=== PATIENT | female | born 1985 ===

== ENCOUNTER 2016-07-17 10:20 | Emergency (ER) | payer OTHER ==
[2016-07-17 10:20] VITALS: BMI 39.4
[2016-07-17 14:11] VITALS: BP 132/75; PULSE 72; RESP 18; TEMP 98; O2SAT 98
--- NOTE | 2016-07-17 14:16 | RAD ---
PROCEDURE: Right Knee Radiographs. HISTORY: twisted and fell onknee COMPARISON: None. FINDINGS: BONES: Normal. No fracture. JOINTS: Normal. No osteoarthritis. JOINT EFFUSION: None. OTHER FINDINGS: None. IMPRESSION: Normal radiographs of the right knee.
--- NOTE | 2016-07-17 15:47 | C.PDOC ---
History Of Present Illness 30-year-old female, presents to the emergency department with complaints of fall. Patient was walking, when she stepped in pothole, causing her to twist and fall onto right knee. Patient states she hit her head, but did not lose consciousness. denies any neck pain. dizziness, blurry vision, vomiting. Patient denies numbness/weakness, tingling, or any other associated symptoms. No other complaints at this time. Time Seen by Provider: 07/17/16 11:00 Chief Complaint (Nursing): Lower Extremity Problem/Injury History Per: Patient History/Exam Limitations: no limitations Onset/Duration Of Symptoms: Hrs (2), Other (prior to arrival) Current Symptoms Are (Timing): Still Present Severity: Moderate Recent travel outside of the [place]: No Past Medical History Reviewed: Historical Data, Nursing Documentation, Vital Signs Vital Signs: Last Vital Signs Temp 98 F 07/17/16 13:30 Pulse 72 07/17/16 13:30 Resp 18 07/17/16 13:30 BP 132/75 07/17/16 13:30 Pulse Ox 98 07/17/16 23:02 - Medical History PMH: HTN, Hypercholesterolemia Surgical History: Appendectomy - [facility] Procedures APPLICATION OF SPLINT (04/09/14) Family History: States: No Known Family Hx - Social History Hx Tobacco Use: No Hx Alcohol Use: No Hx Substance Use: No - Immunization History Hx Tetanus Toxoid Vaccination: Yes Hx Influenza Vaccination: Yes Hx Pneumococcal Vaccination: Yes Review Of Systems Except As Marked, All Systems Reviewed And Found Negative. Constitutional: Negative for: Fever, Chills Respiratory: Negative for: Cough Gastrointestinal: Negative for: Vomiting Musculoskeletal: Positive for: Other (RIGHT KNEE PAIN). Negative for: Neck Pain , Back Pain Neurological: Negative for: Weakness, Numbness Physical Exam - Physical Exam Appears: Non-toxic, No Acute Distress Skin: Warm, Dry, No Rash Head: Atraumatic, Normacephalic Neck: Normal ROM, No Midline Cervical Tenderness Chest: Symmetrical, No Deformity, No Tenderness Cardiovascular: Rhythm Regular, No Murmur Respiratory: Normal Breath Sounds, No Accessory Muscle Use, No Rales, No Rhonchi , No Wheezing Gastrointestinal/Abdominal: Soft, No Tenderness Back: No CVA Tenderness, No Vertebral Tenderness Extremity: Tenderness (distal right patella tender, painful rom, no swelling noted. ), No Calf Tenderness, No Deformity Extremity: Right: Painful To Bear Weight Pulses: Left Dorsalis Pedis: Normal, Right Dorsalis Pedis: Normal Neurological/Psych: Oriented x3, Normal Speech, Normal Cognition, Normal Cranial Nerves, Normal Motor, Normal Sensation ED Course And Treatment - Laboratory Results Urine POC: Negative O2 Sat by Pulse Oximetry: 98 - Other Rad Right knee x-ray X-Ray: Viewed By Me, Read By Radiologist Interpretation: IMPRESSION: Normal radiographs of the right knee. Disposition - Disposition Disposition: HOME/ ROUTINE Disposition Time: 01:30 Condition: GOOD Forms: General Discharge Instructions - Clinical Impression Clinical Impression: Knee sprain - Scribe Statement The provider has reviewed the documentation as recorded by the Monica Gavin All medical record entries made by the Butchibvamsi were at my direction and personally dictated by me. I have reviewed the chart and agree that the record accurately reflects my personal performance of the history, physical exam, medical decision making, and the department course for this patient. I have also personally directed, reviewed, and agree with the discharge instructions and disposition.
== END 2016-07-17 13:35 | disposition home or self-care (01) ==
LOC: C.ER 10:20
DX: S83.91XA Sprain of unspecified site of right knee, initial encounter (principal); W18.30XA Fall on same level, unspecified, initial encounter; Y93.01 Activity, walking, marching and hiking

== ENCOUNTER 2017-04-12 00:08 | Emergency (ER) | payer OTHER ==
[2017-04-12 00:08] VITALS: BMI 39.4
[2017-04-12 00:26] VITALS: RESP 20
--- NOTE | 2017-04-12 02:01 | C.PDOC ---
History Of Present Illness 31 year old female presents to the ER with a complaint of back pain. Patient states she was coming out of her fiance's house, was carrying groceries, slipped down the stairs, and landed on her back. Denies weakness or numbness. Time Seen by Provider: 04/12/17 00:21 Chief Complaint (Nursing): Back Pain History Per: Patient History/Exam Limitations: no limitations Onset/Duration Of Symptoms: Hrs Current Symptoms Are (Timing): Still Present Quality Of Discomfort: Unable To Describe Previous Symptoms: None Associated Symptoms: None. denies: Incontinence, New Weakness, New Numbness Exacerbating Factor(s): Turning, Movement Recent travel outside of the [place]: No Past Medical History Reviewed: Historical Data, Nursing Documentation, Vital Signs Vital Signs: Last Vital Signs Temp 98 F 04/12/17 02:18 Pulse 92 H 04/12/17 02:18 Resp 20 04/12/17 02:18 BP 112/77 04/12/17 02:18 Pulse Ox 98 04/13/17 04:16 - Medical History PMH: HTN, Hypercholesterolemia Surgical History: Appendectomy - [facility] Procedures APPLICATION OF SPLINT (04/09/14) Family History: States: Unknown Family Hx - Social History Hx Tobacco Use: No Hx Alcohol Use: No Hx Substance Use: No - Immunization History Hx Tetanus Toxoid Vaccination: Yes Hx Influenza Vaccination: Yes Hx Pneumococcal Vaccination: Yes Review Of Systems Musculoskeletal: Positive for: Back Pain Neurological: Negative for: Weakness, Numbness Physical Exam - Physical Exam Appears: Non-toxic, No Acute Distress Skin: Normal Color, Warm, Dry, No Rash Head: Atraumatic, Normacephalic Eye(s): bilateral: Normal Inspection, PERRL, EOMI Ear(s): Bilateral: Normal Oral Mucosa: Moist Neck: Normal ROM, No Midline Cervical Tenderness, No Paracervical Tenderness, Supple Chest: Symmetrical, No Tenderness Cardiovascular: Rhythm Regular, No Friction Rub, No Murmur Respiratory: Normal Breath Sounds, No Rales, No Rhonchi, No Wheezing Gastrointestinal/Abdominal: Normal Exam, Soft, No Tenderness Back: Normal Inspection, No CVA Tenderness Extremity: Normal ROM (x4), Capillary Refill (< 2 sec), No Swelling Pulses: Left Radial: Normal, Right Radial: Normal, Left Dorsalis Pedis: Normal, Right Dorsalis Pedis: Normal Neurological/Psych: Oriented x3, Normal Speech, Normal Motor Gait: Steady ED Course And Treatment O2 Sat by Pulse Oximetry: 98 (Room air) Pulse Ox Interpretation: Normal - Other Rad L/S spine x-ray X-Ray: Interpreted by Me, Viewed By Me Interpretation: No acute fractures or dislocations Progress Note: L/S spine x-ray ordered results were negative. Toradol and flexeril administered. On reevaluation, patient is ambulatory in the ER with no pain or difficulty. Will discharge home with instructions to follow up with PMD or return if symptoms worsen. Medical Decision Making Medical Decision Making: On re-exam, the patient reports improvement of symptoms. Lungs are CTA, heart is RRR, abdomen is soft, non-tender and the patient is tolerating PO well. Ambulatory in the ED with steady gait. Follow up with the medical doctor within 1-2 days. Return if worsened. Disposition - Disposition Referrals: Quinn Galan MD [Non-Staff] - Disposition: HOME/ ROUTINE Disposition Time: 01:59 Condition: GOOD Additional Instructions: Follow up with the medical doctor within 1-2 days without fail. Return if worsened. Prescriptions: Cyclobenzaprine [Cyclobenzaprine HCl] 10 mg PO BID #14 tab Naproxen [Naprosyn] 500 mg PO BID #20 tab Instructions: Low Back Pain in Adults Forms: [facility] (Kinyarwanda), Work Excuse - Clinical Impression Clinical Impression: Contusion of back - PA / SAFETY REPRESENTATIVE / Resident Statement MD/DO has reviewed & agrees with the documentation as recorded. - Scribe Statement The provider has reviewed the documentation as recorded by the Scribe Osito Wallace All medical record entries made by the Scribe were at my direction and personally dictated by me. I have reviewed the chart and agree that the record accurately reflects my personal performance of the history, physical exam, medical decision making, and the department course for this patient. I have also personally directed, reviewed, and agree with the discharge instructions and disposition.
[2017-04-12 02:21] VITALS: BP 112/77; PULSE 92; TEMP 98
[2017-04-12 02:50] VITALS: O2SAT 98
--- NOTE | 2017-04-12 09:05 | RAD ---
PROCEDURE: Radiographs of the Lumbar Spine. HISTORY: low back injury, fall COMPARISON: No prior. FINDINGS: BONES: Normal alignment. No listhesis. No fracture. DISC SPACES: Mild endplate degenerative changes associated with osteophyte lipping at L3 and L4. Possible mild intervertebral disc space narrowing at L5-S1. OTHER FINDINGS: None. IMPRESSION: No evidence of acute fracture or subluxation. Mild degenerative changes and small anterior osteophyte lipping at L3-L4 and mild narrowing of the intervertebral disc space at L5-S1
== END 2017-04-12 02:18 | disposition home or self-care (01) ==
LOC: C.ER 00:08
DX: S30.0XXA Contusion of lower back and pelvis, initial encounter (principal); W10.9XXA Fall (on) (from) unspecified stairs and steps, initial encounter
CPT/HCPCS: 72100; 96372; 99283; J1885

== ENCOUNTER 2017-07-01 11:07 | Inpatient (IN) | payer OTHER ==
[2017-07-01 11:07] VITALS: BMI 39.4
--- NOTE | 2017-07-01 11:53 | C.PDOC ---
History Of Present Illness 31-YEAR-OLD FEMALE, PRESENTS TO THE EMERGENCY DEPARTMENT WITH COMPLAINTS OF NAUSEA AND NON-BLOODY DIARRHEA X 3 DAYS. NEW ONSET RUQ PAIN. CO PERSIST "HARDNESS" LUQ X SEV MONTHS, WORSE AFTER EATING "I FEEL STUFFED AFTER EATING EVEN THOUGH I DON'T EAT MUCH". NO WT LOSS, FEVER. NO PRIOR EVAL FOR SAME. PSH APPY. LMP 06/10 EXAM MILD DIST NONTOXIC ABD OBESE +RUQ TEND SOFT NO FOCAL MASS NO R/G GOOD TURGOR REMAINDER NEG Time Seen by Provider: 07/01/17 11:24 Chief Complaint (Nursing): Abdominal Pain History Per: Patient History/Exam Limitations: no limitations Current Symptoms Are (Timing): Still Present Severity: Moderate Past Medical History Reviewed: Historical Data, Nursing Documentation, Vital Signs Vital Signs: Last Vital Signs Temp 97.9 F 07/01/17 11:14 Pulse 90 07/01/17 13:54 Resp 18 07/01/17 13:54 BP 143/94 H 07/01/17 13:54 Pulse Ox 98 07/01/17 13:41 - Medical History PMH: HTN, Hypercholesterolemia Surgical History: Appendectomy - [facility] Procedures APPLICATION OF SPLINT (04/09/14) Family History: States: No Known Family Hx - Social History Hx Tobacco Use: No Hx Alcohol Use: No Hx Substance Use: No - Immunization History Hx Tetanus Toxoid Vaccination: Yes Hx Influenza Vaccination: Yes Hx Pneumococcal Vaccination: Yes Review Of Systems Constitutional: Negative for: Fever, Weight loss Cardiovascular: Negative for: Chest Pain, Palpitations Respiratory: Negative for: Shortness of Breath Gastrointestinal: Positive for: Nausea, Abdominal Pain, Diarrhea Musculoskeletal: Negative for: Back Pain Neurological: Negative for: Weakness, Numbness, Headache, Dizziness Physical Exam - Physical Exam Appears: Non-toxic, No Acute Distress (MILD DIST) Skin: Normal Color, Warm, Dry, No Diaphoretic, No Rash, Other (GOOD TURGOR) Head: Atraumatic, Normacephalic Eye(s): bilateral: PERRL Nose: Normal Oral Mucosa: Moist Lips: Normal Appearing Neck: Normal ROM Chest: Symmetrical Cardiovascular: Rhythm Regular, No Murmur Respiratory: Normal Breath Sounds, No Accessory Muscle Use Gastrointestinal/Abdominal: Soft, Tenderness (OBESE +RUQ TEND), No Guarding, No Rebound Extremity: Normal ROM, No Deformity, No Swelling Neurological/Psych: Oriented x3, Normal Speech ED Course And Treatment - Laboratory Results Result Diagrams: 07/01/17 11:59 07/01/17 11:59 O2 Sat by Pulse Oximetry: 98 (RA) Pulse Ox Interpretation: Normal Progress - Re-Evaluation Re-evaluation Note: 07/01/17 12:38 PS NO PRIOR HO DM. APPEARS COMFORTABLE NAD. CT PENDING 07/01/17 13:31 D/W ICU FOR EVAL. CT/US PENDING 07/01/17 13:40 D/W DR Cleo ZACARIAS C/F PMD WILL ADMIT 07/01/17 14:57 cleared for floor per ICU - Data Reviewed Data Reviewed: Lab, Diagnostic imaging, Old records Disposition Counseled Patient/Family Regarding: Studies Performed, Diagnosis - Disposition Disposition: HOSPITALIZED Disposition Time: 13:41 Condition: STABLE Forms: [facility] (Vietnamese) - POA Present On Arrival: Poor Glycemic Control - Clinical Impression Clinical Impression: Diabetes mellitus, new onset, Abdominal pain - Scribe Statement The provider has reviewed the documentation as recorded by the Scribe (Calvin Gavin) All medical record entries made by the Scribe were at my direction and personally dictated by me. I have reviewed the chart and agree that the record accurately reflects my personal performance of the history, physical exam, medical decision making, and the department course for this patient. I have also personally directed, reviewed, and agree with the discharge instructions and disposition. Decision To Admit - Pt Status Changed To: Hospital Disposition Of: Observation - . Bed Request Type: Regular Admitting Physician: Bennie Zacarias Patient Diagnosis: Diabetes mellitus, new onset, Abdominal pain
[2017-07-01] MEDS ORDERED: Sodium Chloride 0.9% 1,000 ML IV ONE (11:54)
[2017-07-01 12:04] LABS: BASO # 0.1 K/uL (0.0-0.2); BASO % 1.2 % (0.0-2.0); EOS # 0.2 K/uL (0.0-0.7); EOS % 2.3 % (0.0-4.0); HEMOGLOBIN 13.4 g/dL (11.0-16.0); LYMPH # 2.1 K/uL (1.0-4.3); LYMPH % 30.3 % (20.0-40.0); MEAN CELL VOLUME 81.2 fL (81.0-99.0); MEAN CORPUSCULAR HGB CONC 33.3 g/dL (33.0-37.0); MEAN PLATELET VOLUME 9.6 fL (7.2-11.7); MONO # 0.4 K/uL (0.0-0.8); NEUT # 4.2 K/uL (1.8-7.0); NEUT % 60.2 % (50.0-75.0); NRBC % 0.1 % (0.0-2.0); RBC 4.96 Mil/uL (3.80-5.20); RED CELL DISTRIBUTION WIDTH 15.4 % (11.5-14.5)
[2017-07-01] MEDS ORDERED: Sodium Chloride 0.9% 1,000 ML ONE (12:04)
[2017-07-01] MEDS ORDERED: Morphine 4 MG/ML VIAL ONE (12:09)
[2017-07-01 12:11] LABS: SQUAMOUS EPITHIAL 5 /hpf (0-5); URINE BILIRUBIN NEGATIVE (NEGATIVE); URINE BLOOD 1+ (NEGATIVE); URINE CLARITY Hazy (Clear); URINE COLOR Yellow (YELLOW); URINE GLUCOSE (UA) 3+ mg/dL (Normal); URINE PROTEIN 1+ mg/dL (NEGATIVE); URINE UROBILINOGEN NORMAL mg/dL (0.2-1.0)
[2017-07-01 12:14] LABS: URINE LEUKOCYTE ESTERASE 1+ Leu/uL (Negative)
[2017-07-01 12:15] LABS: ALB/GLOB RATIO 1.1 (1.0-2.1); ALBUMIN 4.4 g/dL (3.5-5.0); ALT/SGPT 55 U/L (9-52); AST/SGOT 78 U/L (14-36); BLOOD UREA NITROGEN 9 mg/dL (7-17); CALCIUM 9.3 mg/dl (8.6-10.4); GFR AFRICAN-AMERICAN > 60; GFR NON-AFRICAN AMERICAN > 60; LIPASE 76 U/L (23-300)
[2017-07-01] MEDS ORDERED: Iodixanol 320 MG/ML 100 ML BOTTLE IV ONE (12:44)
[2017-07-01 13:13] LABS: VENOUS BLOOD GAS BASE EXCESS -0.8 mmol/L (0.0-2.0); VENOUS BLOOD GAS PCO2 41 mmHg (40-60); VENOUS BLOOD GAS PO2 48 mm/Hg (30-55); VENOUS BLOOD PH 7.38 (7.32-7.43)
--- NOTE | 2017-07-01 13:35 | US ---
HISTORY: abd pain COMPARISON: Correlations made to CT scan of the abdomen and pelvis dated 02/17/2015. TECHNIQUE: Sonographic evaluation of the right upper quadrant of the abdomen. FINDINGS: LIVER: Enlarged, measuring 24.9 cm in length. Increased echogenicity of the liver parenchyma. No mass. No intrahepatic bile duct dilatation. GALLBLADDER: Unremarkable. No gallstones. COMMON BILE DUCT: Measures 3 mm. No stones. No dilatation. PANCREAS: Not well-visualized RIGHT KIDNEY: Measures 13.8 x 4.9 x 4.6 cm in length. Normal echogenicity. No calculus, mass, or hydronephrosis. AORTA: No aneurysmal dilatation. IVC: Unremarkable. OTHER FINDINGS: None . IMPRESSION: Hepatomegaly with steatosis
[2017-07-01] MEDS ORDERED: (Novolin R) Insulin Human Regular 100 units/ml vial IV STA (13:39)
[2017-07-01] MEDS ORDERED: (Novolin R) Insulin Human Regular 100 units/ml vial ONE ×2 (13:53→18:37)
--- NOTE | 2017-07-01 13:57 | CT ---
PROCEDURE: CT Abdomen and Pelvis with contrast HISTORY: abd pain DIARRHEA COMPARISON: None. TECHNIQUE: Contrast dose: 100 mL Visipaque 320 Radiation dose: Total exam DLP = 1194.6 mGy-cm. This CT exam was performed using one or more of the following dose reduction techniques: Automated exposure control, adjustment of the mA and/or kV according to patient size, and/or use of iterative reconstruction technique. FINDINGS: LOWER THORAX: Unremarkable. LIVER: Diffuse hepatic steatosis. No gross lesion or ductal dilatation. GALLBLADDER AND BILE DUCTS: Unremarkable. PANCREAS: Unremarkable. No gross lesion or ductal dilatation. SPLEEN: Unremarkable. ADRENALS: Unremarkable. No mass. KIDNEYS AND URETERS: Punctate nonobstructive left renal calculus. No hydronephrosis. No solid mass. VASCULATURE: Unremarkable. No aortic aneurysm. BOWEL: Unremarkable. No obstruction. No gross mural thickening. APPENDIX: Appendicolith within the appendiceal stump tip without dilatation, wall thickening or periappendiceal inflammatory change. PERITONEUM: Surgical clips in the right mid abdomen. No free fluid. No free air. LYMPH NODES: Unremarkable. No enlarged lymph nodes. BLADDER: Unremarkable. REPRODUCTIVE: Unremarkable. BONES: No acute fracture. OTHER FINDINGS: None. IMPRESSION: No acute abdominal pelvic pathology. Diffuse hepatic steatosis. Punctate nonobstructive left renal calculus.
[2017-07-01] MEDS: Sodium Chloride 0.9% 1,000 ML IV SCH (18:16)
[2017-07-01] MEDS: (Novolog) Insulin Aspart, Recombinant 100 u/ml 10 ml vial SC SCH (18:37)
[2017-07-01 22:46] VITALS: RESP 20
[2017-07-02] MEDS: Sodium Chloride 0.9% 1,000 ML IV SCH ×4 (03:45→23:00)
[2017-07-02] MEDS: (Novolog) Insulin Aspart, Recombinant 100 u/ml 10 ml vial SC SCH ×4 (08:00→22:15)
[2017-07-02] MEDS: Pantoprazole 40 mg EC Tab PO SCH (09:39)
[2017-07-02] MEDS: Enoxaparin 30 mg Syringe SC SCH (09:39)
[2017-07-02] MEDS ORDERED: Pneumococcal 23-Valent Vaccine IM ONE (10:00)
--- NOTE | 2017-07-02 14:37 | CP.PCM.HP ---
Past Patient History - Infectious Disease Hx of Infectious Diseases: None - Past Social History Smoking Status: Former Smoker - CARDIAC Hx Hypercholesterolemia: Yes Hx Hypertension: Yes - PSYCHIATRIC Hx Substance Use: No - SURGICAL HISTORY Hx Appendectomy: Yes - ANESTHESIA Hx Anesthesia: Yes Hx Anesthesia Reactions: No Meds Allergies/Adverse Reactions: Allergies Allergy/AdvReac Type Severity Reaction Status Date / Time loperamide HCl Allergy RASH Verified 07/01/17 11:17 [From Imodium A-D] Physical Exam - Constitutional Appears: Well - Head Exam Head Exam: ATRAUMATIC, NORMAL INSPECTION, NORMOCEPHALIC - Eye Exam Eye Exam: EOMI, Normal appearance, PERRL Pupil Exam: NORMAL ACCOMODATION, PERRL - ENT Exam ENT Exam: Mucous Membranes Moist, Normal Exam - Neck Exam Neck exam: Positive for: Normal Inspection - Respiratory Exam Respiratory Exam: Decreased Breath Sounds - Cardiovascular Exam Cardiovascular Exam: REGULAR RHYTHM, +S1, +S2 - GI/Abdominal Exam GI & Abdominal Exam: Diminished Bowel Sounds, Soft - Rectal Exam Rectal Exam: Deferred Results - Vital Signs Recent Vital Signs: Last Vital Signs Temp 97.7 F 07/02/17 08:13 Pulse 76 07/02/17 08:13 Resp 20 07/02/17 08:13 BP 145/81 07/02/17 08:13 Pulse Ox 97 07/02/17 08:13 - Labs Result Diagrams: 07/01/17 11:59 07/01/17 11:59 Labs: Laboratory Results - last 24 hr 07/01/17 07/01/17 07/02/17 15:47 18:09 07:13 POC Glucose (mg/dL) 205 H 159 H 189 H Hemoglobin A1c 07/02/17 07/02/17 11:06 11:41 POC Glucose (mg/dL) 196 H Hemoglobin A1c 10.2 H
[2017-07-03] MEDS: Sodium Chloride 0.9% 1,000 ML IV SCH ×2 (07:00→09:41)
[2017-07-03 08:28] VITALS: BP 125/80; PULSE 80; TEMP 97.6; O2SAT 98
[2017-07-03] MEDS: (Novolog) Insulin Aspart, Recombinant 100 u/ml 10 ml vial SC SCH ×2 (08:34→12:27)
[2017-07-03] MEDS: Enoxaparin 30 mg Syringe SC SCH (09:40)
[2017-07-03] MEDS: Pantoprazole 40 mg EC Tab PO SCH (09:41)
--- NOTE | 2017-07-03 13:55 | CP.PCM.PN ---
Subjective - Date & Time of Evaluation Date of Evaluation: 07/03/17 Time of Evaluation: 10:40 - Subjective Subjective: clinically same Objective - Vital Signs/Intake and Output Vital Signs (last 24 hours): Temp Pulse Resp BP Pulse Ox 97.6 F 80 20 125/80 98 07/03/17 08:00 07/03/17 08:00 07/03/17 08:00 07/03/17 08:00 07/03/17 08:00 Intake and Output: 07/03/17 07/03/17 06:59 18:59 Intake Total 2150 Balance 2150 - Medications Medications: Current Medications Enoxaparin Sodium (Lovenox) 30 mg SC DAILY [facility] Last Admin: 07/03/17 09:40 Dose: 30 mg Sodium Chloride (Sodium Chloride 0.9%) 1,000 mls @ 100 mls/hr IV .Q10H [facility] Last Admin: 07/03/17 09:41 Dose: Not Given Insulin Aspart (Novolog) 0 unit SC ACHS [facility] PRN Reason: Protocol Last Admin: 07/03/17 12:27 Dose: 1 unit Metformin HCl (Glucophage) 500 mg PO BID [facility] Last Admin: 07/03/17 09:41 Dose: 500 mg Pantoprazole Sodium (Protonix Ec Tab) 40 mg PO DAILY [facility] Last Admin: 07/03/17 09:41 Dose: 40 mg - Labs Labs: 07/01/17 11:59 07/01/17 11:59 - Constitutional Appears: Well - Head Exam Head Exam: ATRAUMATIC, NORMAL INSPECTION, NORMOCEPHALIC - Eye Exam Eye Exam: EOMI, Normal appearance, PERRL Pupil Exam: NORMAL ACCOMODATION, PERRL - ENT Exam ENT Exam: Mucous Membranes Moist, Normal Exam - Neck Exam Neck Exam: Full ROM, Normal Inspection. absent: Lymphadenopathy - Respiratory Exam Respiratory Exam: Decreased Breath Sounds - Cardiovascular Exam Cardiovascular Exam: REGULAR RHYTHM, +S1, +S2 - GI/Abdominal Exam GI & Abdominal Exam: Soft, Diminished Bowel Sounds - Rectal Exam Rectal Exam: Deferred
--- NOTE | 2017-07-03 15:20 | CP.PCM.PN ---
Subjective - Date & Time of Evaluation Date of Evaluation: 07/03/17 Time of Evaluation: 15:18 - Subjective Subjective: PT SEEN AND CLEARED FOR D/C BY DR. ZACARIAS. TO GO HOME WITH RX FOR METFORMIN BID. PT TO F/U WITH Sergei ZACARIAS IN THE OFFICE IN 1 WEEK. CAN BE REFERRED TO [facility]TURE BUILDER APPRENTICE OR DM EDUCATOR OP FOR FURTHER EDUCATION AND MANAGEMENT. NO FURTHER ORDERS. Objective - Vital Signs/Intake and Output Vital Signs (last 24 hours): Temp Pulse Resp BP Pulse Ox 97.6 F 80 20 125/80 98 07/03/17 08:00 07/03/17 08:00 07/03/17 08:00 07/03/17 08:00 07/03/17 08:00 Intake and Output: 07/03/17 07/03/17 06:59 18:59 Intake Total 2150 Output Total 800 Balance 2150 -800 - Medications Medications: Current Medications Enoxaparin Sodium (Lovenox) 30 mg SC DAILY [facility] Last Admin: 07/03/17 09:40 Dose: 30 mg Sodium Chloride (Sodium Chloride 0.9%) 1,000 mls @ 100 mls/hr IV .Q10H [facility] Last Admin: 07/03/17 09:41 Dose: Not Given Insulin Aspart (Novolog) 0 unit SC ACHS [facility] PRN Reason: Protocol Last Admin: 07/03/17 12:27 Dose: 1 unit Metformin HCl (Glucophage) 500 mg PO BID [facility] Last Admin: 07/03/17 09:41 Dose: 500 mg Pantoprazole Sodium (Protonix Ec Tab) 40 mg PO DAILY [facility] Last Admin: 07/03/17 09:41 Dose: 40 mg - Labs Labs: 07/01/17 11:59 07/01/17 11:59
== END 2017-07-03 16:36 | disposition home or self-care (01) | DRG 814 ==
LOC: C.ER 11:07 → C.9E 14:58 → C.3T 21:30 → OBSVTOIN 07-03 11:42
PROVIDERS: ADMIT Internal Medicine Nephrology; ATTEND Internal Medicine Nephrology
DX: R10.9 Unspecified abdominal pain (principal); E11.9 Type 2 diabetes mellitus without complications; E78.00 Pure hypercholesterolemia, unspecified; I10 Essential (primary) hypertension; Z87.891 Personal history of nicotine dependence

== ENCOUNTER 2018-02-12 21:36 | Emergency (ER) | payer OTHER ==
[2018-02-12 21:37] VITALS: BMI 39.4
[2018-02-12 21:53] VITALS: O2SAT 99
[2018-02-12] MEDS ORDERED: Sodium Chloride 0.9% 1,000 ML IV ONE (22:15)
[2018-02-12] MEDS ORDERED: Sodium Chloride 0.9% 1,000 ML ONE (22:36)
[2018-02-12 22:39] LABS: BASO # 0.1 K/uL (0.0-0.2); BASO % 0.9 % (0.0-2.0); EOS # 0.2 K/uL (0.0-0.7); EOS % 2.4 % (0.0-4.0); HEMOGLOBIN 12.8 g/dL (11.0-16.0); LYMPH # 2.1 K/uL (1.0-4.3); MEAN CORPUSCULAR HEMOGLOBIN 27.5 pg (27.0-31.0); MEAN PLATELET VOLUME 8.7 fL (7.2-11.7); MONO # 0.6 K/uL (0.0-0.8); NEUT # 3.6 K/uL (1.8-7.0); NEUT % 55.7 % (50.0-75.0); RBC 4.65 Mil/uL (3.80-5.20); RED CELL DISTRIBUTION WIDTH 15.4 % (11.5-14.5); WHITE BLOOD COUNT 6.4 K/uL (4.8-10.8)
[2018-02-12 22:43] LABS: HCG,QUALITATIVE URINE NEGATIVE (NEGATIVE); MEAN CELL VOLUME 83.4 fL (81.0-99.0)
[2018-02-12 22:51] LABS: SQUAMOUS EPITHIAL 6 /hpf (0-5); URINE BACTERIA OCC (<OCC); URINE BILIRUBIN NEGATIVE (NEGATIVE); URINE CLARITY Hazy (Clear); URINE COLOR Amber (YELLOW); URINE GLUCOSE (UA) NORMAL (Normal); URINE LEUKOCYTE ESTERASE NEG Leu/uL (Negative); URINE PROTEIN 2+ mg/dL (NEGATIVE)
[2018-02-12 22:52] LABS: URINE BLOOD TRACE (NEGATIVE)
--- NOTE | 2018-02-12 22:53 | C.PDOC ---
History Of Present Illness 32 y/o female presents to the ER c/o abdominal burning pain x1 day, associated with nausea, diarrhea and frontal headache today. Pt reports her was sick with similar sx yesterday after eating from a pizza place (they both did). Pt denies vomiting, dysuria, hematuria, fever/chills. Time Seen by Provider: 02/12/18 21:41 Chief Complaint (Nursing): Abdominal Pain History Per: Patient History/Exam Limitations: no limitations Onset/Duration Of Symptoms: Days (x1) Current Symptoms Are (Timing): Still Present Context: Food Severity: Moderate Location Of Pain/Discomfort: Epigastric Quality Of Discomfort: Burning, "Pain" Associated Symptoms: Nausea, Diarrhea. denies: Fever, Chills, Vomiting Past Medical History Reviewed: Historical Data, Nursing Documentation, Vital Signs Vital Signs: Last Vital Signs Temp 97.8 F 02/12/18 21:39 Pulse 91 H 02/12/18 21:39 Resp 22 02/12/18 21:39 BP 124/85 02/12/18 21:39 Pulse Ox 99 02/12/18 21:39 - Medical History PMH: HTN, Hypercholesterolemia Surgical History: Appendectomy - [facility] Procedures APPLICATION OF SPLINT (04/09/14) Family History: States: No Known Family Hx - Social History Hx Tobacco Use: No Hx Alcohol Use: No Hx Substance Use: No - Immunization History Hx Tetanus Toxoid Vaccination: Yes Hx Influenza Vaccination: Yes Hx Pneumococcal Vaccination: Yes Review Of Systems Constitutional: Negative for: Fever, Chills Gastrointestinal: Positive for: Nausea, Abdominal Pain, Diarrhea. Negative for: Vomiting Genitourinary: Negative for: Dysuria, Hematuria Skin: Negative for: Rash Neurological: Positive for: Headache (frontal) Physical Exam - Physical Exam Appears: Well, Non-toxic, No Acute Distress Skin: Warm, Dry Eye(s): bilateral: Normal Inspection Oral Mucosa: Moist Cardiovascular: Rhythm Regular Respiratory: Normal Breath Sounds, No Rales, No Rhonchi, No Wheezing Gastrointestinal/Abdominal: Normal Exam, Bowel Sounds, Soft, No Tenderness Back: Normal Inspection, No CVA Tenderness Neurological/Psych: Oriented x3 ED Course And Treatment - Laboratory Results Result Diagrams: 02/12/18 22:27 02/12/18 22:27 O2 Sat by Pulse Oximetry: 99 (RA) Pulse Ox Interpretation: Normal Progress Note: Blood work, UA ordered and reviewed. Patient given IV NS bolus, IV Protonix, PO tylenol. Reevaluation Time: 23:20 Reassessment Condition: Improved (Patient reassessed, is resting comfortably and states she feels better. On exam, abdomen is soft and nontender. Patient given Rxs for pepcid and bentyl, and she was instructed to drink plenty of clear fluids and to follow up with PMD in 1-2 days. She understands she should return to ED if symptoms worsen.) Disposition Counseled Patient/Family Regarding: Studies Performed, Diagnosis, Need For Followup, Rx Given - Disposition Referrals: Estevan Sandhu MD [Medical Doctor] - Disposition: HOME/ ROUTINE Disposition Time: 23:20 Condition: STABLE Additional Instructions: FOLLOW UP WITH YOUR DOCTOR IN 1-2 DAYS DRINK PLENTY OF CLEAR FLUIDS RETURN TO ER IF SYMPTOMS WORSEN USE MEDICATIONS NEEDED Prescriptions: Dicyclomine [Bentyl] 20 mg PO Q6 PRN #12 tab PRN Reason: ABDOMINAL CRAMPING Famotidine [Pepcid] 20 mg PO BID PRN #15 tab PRN Reason: abdominal Instructions: Diarrhea and Traveler's Diarrhea, Adult (DC) Forms: [facility] (Divehi) Print Language: GERMAN - Clinical Impression Clinical Impression: Nausea, Diarrhea, Epigastric burning sensation - Scribe Statement The provider has reviewed the documentation as recorded by the Scribvamsi Fermin Do Provider Attestation: All medical record entries made by the Scribe were at my direction and personally dictated by me. I have reviewed the chart and agree that the record accurately reflects my personal performance of the history, physical exam, medical decision making, and the department course for this patient. I have also personally directed, reviewed, and agree with the discharge instructions and disposition.
[2018-02-12 22:54] LABS: ALB/GLOB RATIO 1.2 (1.0-2.1); ALBUMIN 4.5 g/dL (3.5-5.0); ALT/SGPT 43 U/L (9-52); AST/SGOT 50 U/L (14-36); BLOOD UREA NITROGEN 10 mg/dL (7-17); CALCIUM 8.3 mg/dl (8.6-10.4); GFR NON-AFRICAN AMERICAN > 60; LIPASE 77 U/L (23-300)
[2018-02-12 23:33] VITALS: BP 132/76; PULSE 85; RESP 15; TEMP 98.5
== END 2018-02-12 23:33 | disposition home or self-care (01) ==
LOC: C.ER 21:36
DX: R10.13 Epigastric pain (principal); R11.0 Nausea; R19.7 Diarrhea, unspecified
CPT/HCPCS: 80053; 81001; 83690; 84703; 85025; 96361; 96374; 99285; C9113; J7030

== ENCOUNTER 2018-03-17 18:30 | Emergency (ER) | payer OTHER ==
[2018-03-17 18:31] VITALS: BMI 39.4
[2018-03-17] MEDS ORDERED: Sodium Chloride 0.9% 1,000 ML IV ONE (19:44)
--- NOTE | 2018-03-17 19:44 | C.PDOC ---
History Of Present Illness The patient presents to the ED for evaluation of right upper quadrant abdominal pain, nausea, diarrhea and slight lightheadedness which began today. Patient reports decreased PO intake. She denies fever, chills, vomiting. Time Seen by Provider: 03/17/18 19:44 Chief Complaint (Nursing): Abdominal Pain History Per: Patient History/Exam Limitations: no limitations Onset/Duration Of Symptoms: Hrs Current Symptoms Are (Timing): Still Present Location Of Pain/Discomfort: RUQ Radiation Of Pain To:: None Quality Of Discomfort: "Pain" Associated Symptoms: Nausea, Diarrhea. denies: Fever, Chills, Vomiting Exacerbating Factors: None Alleviating Factors: None Last Bowel Movement: Today Recent travel outside of the [place]: No Additional History Per: Patient Abnormal Vaginal Bleeding: No Past Medical History Reviewed: Historical Data, Nursing Documentation, Vital Signs Vital Signs: Last Vital Signs Temp 98.3 F 03/17/18 18:51 Pulse 100 H 03/17/18 18:51 Resp 18 03/17/18 18:51 BP 147/100 H 03/17/18 18:51 Pulse Ox 97 03/17/18 18:51 - Medical History PMH: HTN, Hypercholesterolemia Denies: Chronic Kidney Disease Surgical History: Appendectomy - [facility] Procedures APPLICATION OF SPLINT (04/09/14) Family History: States: Unknown Family Hx - Social History Hx Tobacco Use: No Hx Alcohol Use: No Hx Substance Use: No - Immunization History Hx Tetanus Toxoid Vaccination: Yes Hx Influenza Vaccination: Yes Hx Pneumococcal Vaccination: Yes Review Of Systems Constitutional: Negative for: Fever, Chills Cardiovascular: Negative for: Chest Pain, Palpitations Respiratory: Negative for: Cough, Shortness of Breath Gastrointestinal: Positive for: Nausea, Abdominal Pain (right upper quadrant ), Diarrhea. Negative for: Vomiting Genitourinary: Negative for: Dysuria, Frequency, Hematuria Musculoskeletal: Negative for: Neck Pain, Shoulder Pain, Back Pain Skin: Negative for: Rash, Lesions, Jaundice, Bruising Neurological: Positive for: Other (lightheadedness). Negative for: Weakness, Numbness, Headache Physical Exam - Physical Exam Appears: Non-toxic, No Acute Distress Skin: Warm, Dry Head: Normacephalic Eye(s): bilateral: Normal Inspection Oral Mucosa: Moist Neck: Supple Chest: Symmetrical, No Deformity, No Tenderness Cardiovascular: Rhythm Regular, No Murmur Respiratory: No Rales, No Rhonchi, No Wheezing Gastrointestinal/Abdominal: Soft, Tenderness (right upper quadrant ), Distention, No Guarding, No Rebound, Other (tympanic to percussion ) Extremity: Normal ROM, Capillary Refill (less than 2 seconds ) Neurological/Psych: Oriented x3 ED Course And Treatment - Laboratory Results Result Diagrams: 03/17/18 20:26 03/17/18 20:26 O2 Sat by Pulse Oximetry: 97 (on RA) Pulse Ox Interpretation: Normal Progress Note: Bloodwork and urinalysis ordered and reviewed. Pepcid IVP, Zofran IVP and IV Fluids given. Medical Decision Making Medical Decision Making: Upon provider reevaluation patient is feeling better, is medically stable, and requires no further treatment in the ED at this time. Patient will be discharged home with Rx for zofran . Counseling was provided and all questions were answered regarding diagnosis and need for follow up withdr knox. There is agreement to discharge plan. Return if symptoms persist or worsen. Disposition Counseled Patient/Family Regarding: Studies Performed, Diagnosis, Need For Followup, Rx Given - Disposition Referrals: Shaik Whalen MD [Staff Provider] - Disposition: HOME/ ROUTINE Disposition Time: 19:44 Condition: FAIR Additional Instructions: return if symptoms recur Prescriptions: Ondansetron ODT [Zofran ODT] 1 odt PO BID PRN #6 odt PRN Reason: Nausea/Vomiting Instructions: Acute Abdomen (Belly Pain), Adult (DC), Nausea and Vomiting, Adult (DC) Forms: [facility] ([place]) - Clinical Impression Clinical Impression: Abdominal pain, Nausea & vomiting, Diarrhea - Scribe Statement The provider has reviewed the documentation as recorded by the Scribe (Kassy Whittington) Provider Attestation: All medical record entries made by the Scribe were at my direction and personally dictated by me. I have reviewed the chart and agree that the record accurately reflects my personal performance of the history, physical exam, medical decision making, and the department course for this patient. I have also personally directed, reviewed, and agree with the discharge instructions and disposition.
[2018-03-17 20:36] LABS: BASO % 0.4 % (0.0-2.0); EOS # 0.2 K/uL (0.0-0.7); EOS % 1.8 % (0.0-4.0); HEMOGLOBIN 12.8 g/dL (11.0-16.0); LYMPH % 31.1 % (20.0-40.0); MEAN CELL VOLUME 82.2 fL (81.0-99.0); MEAN CORPUSCULAR HEMOGLOBIN 26.8 pg (27.0-31.0); MEAN CORPUSCULAR HGB CONC 32.6 g/dL (33.0-37.0); MEAN PLATELET VOLUME 8.7 fL (7.2-11.7); MONO # 0.6 K/uL (0.0-0.8); MONO % 6.3 % (0.0-10.0); NEUT # 5.8 K/uL (1.8-7.0); NEUT % 60.4 % (50.0-75.0); NRBC % 0.1 % (0.0-2.0); RBC 4.76 Mil/uL (3.80-5.20); RED CELL DISTRIBUTION WIDTH 14.8 % (11.5-14.5); WHITE BLOOD COUNT 9.5 K/uL (4.8-10.8)
[2018-03-17 20:45] LABS: SQUAMOUS EPITHIAL 2 /hpf (0-5); URINE BILIRUBIN NEGATIVE (NEGATIVE); URINE BLOOD NEGATIVE (NEGATIVE); URINE CLARITY Clear (Clear); URINE COLOR Yellow (YELLOW); URINE GLUCOSE (UA) NORMAL (Normal); URINE LEUKOCYTE ESTERASE NEG Leu/uL (Negative); URINE PROTEIN NEGATIVE (NEGATIVE); URINE UROBILINOGEN NORMAL mg/dL (0.2-1.0)
[2018-03-17 20:47] LABS: HCG,QUALITATIVE URINE NEGATIVE (NEGATIVE)
[2018-03-17 20:56] LABS: ALB/GLOB RATIO 1.4 (1.0-2.1); ALBUMIN 4.7 g/dL (3.5-5.0); ALT/SGPT 32 U/L (9-52); AST/SGOT 31 U/L (14-36); BLOOD UREA NITROGEN 8 mg/dL (7-17); CALCIUM 9.2 mg/dl (8.6-10.4); GFR NON-AFRICAN AMERICAN > 60; LIPASE 35 U/L (23-300)
[2018-03-17] MEDS ORDERED: Iodixanol 320 MG/ML 100 ML BOTTLE IV ONE (21:13)
[2018-03-17] MEDS ORDERED: Sodium Chloride 0.9% 1,000 ML ONE (21:15)
[2018-03-17 22:25] VITALS: TEMP 98.4
[2018-03-17 23:57] VITALS: BP 133/83; PULSE 75; RESP 18; O2SAT 98
--- NOTE | 2018-03-18 10:02 | CT ---
CT abdomen and pelvis HISTORY: Diffuse abdominal pain. COMPARISON: 07/01/2017 TECHNIQUE: Contiguous axial images were performed through the pelvis with the use of intravenous contrast. Subsequently, sagittal and coronal reformatted images were obtained. This CT exam was performed using one or more of the following dose reduction techniques: Automated exposure control, adjustment of the mA and/or kV according to patient size, and/or use of iterative reconstruction technique. Findings: Lung bases are clear. Heart is mildly enlarged. No pleural or pericardial effusion. Fatty infiltration of the liver. Contracted gallbladder. Splenule. Adrenal glands are preserved. Pancreas is preserved. Upper abdominal bowel is preserved. Right kidney: No calculi or hydronephrosis. Left Kidney: 4 and 2 millimeter nonobstructive calculi in the upper pole of the left kidney. Urinary bladder is preserved. Heterogeneous uterus and bilateral adnexa. Underdistended sigmoid colon. Again identified is a 4 millimeter radiopaque density at the level of appendicular stump which may represent an appendicolith and or surgical clip. Adjacent surgical clips noted at the level of the cecum. Clinical correlation. No significant abdominal or pelvic lymphadenopathy. Degenerative changes in the spine and hips with a few scattered bone islands noted. Impression: 1. 4 and 2 millimeter nonobstructive calculi in the upper pole of the left kidney. 2. Fatty infiltration of the liver. 3. Again identified is a 4 millimeter radiopaque density at the level of appendicular stump which may represent an appendicolith and or surgical clip. Adjacent surgical clips noted at the level of the cecum. Clinical correlation. 4. Underdistended sigmoid colon. 5. Contracted gallbladder. Additional findings as above. A preliminary report was generated at 11:19 p.m. on 03/17/[address] Thanh Sánchez from [facility]. Please note this case was placed in the PA review folder.
== END 2018-03-17 23:57 | disposition home or self-care (01) ==
LOC: C.ER 18:30
DX: R10.11 Right upper quadrant pain (principal); R11.2 Nausea with vomiting, unspecified; R19.7 Diarrhea, unspecified
CPT/HCPCS: 74177; 80053; 81001; 82948; 83690; 84703; 85025; 96361; 96374; 96375; 99285; J1885; J2405; J7030; Q9967

== ENCOUNTER 2018-06-03 12:52 | Emergency (ER) | payer OTHER ==
[2018-06-03 12:52] VITALS: BMI 39.4
--- NOTE | 2018-06-03 13:34 | C.PDOC ---
History Of Present Illness 32 year old female presents to ED with viral syndrome symptoms for the last 2 days. Patient's has been questionably diagnosed with the flu. Patient feels malaise, dry cough, loose stool, sore throat, and occasional fevers. Patient does not measure temperature with thermometer.Patient guarantees that she is not . Patient denies nausea, dysuria, hematuria, and vomiting. Time Seen by Provider: 06/03/18 13:25 Chief Complaint (Nursing): Abdominal Pain History Per: Patient History/Exam Limitations: no limitations Onset/Duration Of Symptoms: Days (2) Current Symptoms Are (Timing): Still Present Associated Symptoms: Fever, Other (malaise, loose stools). denies: Nausea, Vomiting Past Medical History Reviewed: Historical Data, Nursing Documentation, Vital Signs Vital Signs: Last Vital Signs Temp 97.9 F 06/03/18 12:56 Pulse 90 06/03/18 12:56 Resp 18 06/03/18 12:56 BP 146/94 H 06/03/18 12:56 Pulse Ox 98 06/03/18 12:56 - Medical History PMH: HTN, Hypercholesterolemia Denies: Chronic Kidney Disease Surgical History: Appendectomy - [facility] Procedures APPLICATION OF SPLINT (04/09/14) Family History: States: Unknown Family Hx - Social History Hx Tobacco Use: No Hx Alcohol Use: No Hx Substance Use: No - Immunization History Hx Tetanus Toxoid Vaccination: Yes Hx Influenza Vaccination: Yes Hx Pneumococcal Vaccination: Yes Review Of Systems Constitutional: Positive for: Fever, Malaise. Negative for: Chills, Weakness ENT: Positive for: Throat Pain Respiratory: Positive for: Cough. Negative for: Sputum Gastrointestinal: Negative for: Nausea, Vomiting Genitourinary: Negative for: Dysuria, Frequency, Hematuria Neurological: Negative for: Weakness Physical Exam - Physical Exam Appears: No Acute Distress, Other (morbidly obese, female) Skin: Normal Color, Warm, Dry Head: Atraumatic, Normacephalic Throat: Normal, No Erythema, No Exudate Neck: Normal ROM, Supple Chest: Symmetrical, No Deformity Cardiovascular: Rhythm Regular, No Murmur Respiratory: No Accessory Muscle Use, No Rales, No Rhonchi, No Wheezing Gastrointestinal/Abdominal: Soft, No Tenderness Extremity: Capillary Refill (<2 seconds) Neurological/Psych: Oriented x3, Normal Speech, Normal Cognition ED Course And Treatment O2 Sat by Pulse Oximetry: 98 (in RA) Progress Note: Patient given Motrin and Tamiflu. Medical Decision Making Medical Decision Making: asymptomatic, normal exam, normal VS ? exposure to influenza pt prefers empiric Tamiflu extensively instructed cold remidies and OTC tx Disposition Doctor Will See Patient In The: Office Counseled Patient/Family Regarding: Studies Performed, Diagnosis - Disposition Referrals: [facility] [Outside] [facility] [Outside] [facility] [Outside] [facility] [Outside] Shaik Whalen MD [Staff Provider] - Disposition: HOME/ ROUTINE Disposition Time: 13:34 Condition: GOOD Additional Instructions: Tamiflu twice a day for 5 days (anti-influenza medicine) OTC flu/cold meds: ie Dayquil and Nyquil in liberal amounts for symptomatic relief no work/school until afebrile for 24 hours Prescriptions: Oseltamivir Cap [Tamiflu] 75 mg PO BID #9 cap Instructions: Flu, Viral Syndrome (DC) Forms: [facility] ([place] Sor[place]) - Clinical Impression Clinical Impression: Influenza-like illness - Scribe Statement The provider has reviewed the documentation as recorded by the Scribe (Samara Kaur) All medical record entries made by the Scribe were at my direction and personally dictated by me. I have reviewed the chart and agree that the record accurately reflects my personal performance of the history, physical exam, medical decision making, and the department course for this patient. I have also personally directed, reviewed, and agree with the discharge instructions and di sposition.
[2018-06-03 14:06] VITALS: BP 130/89; PULSE 86; RESP 16; TEMP 98.4
[2018-06-03 14:14] VITALS: O2SAT 98
== END 2018-06-03 14:05 | disposition home or self-care (01) ==
LOC: C.ER 12:52
DX: J11.1 Influenza due to unidentified influenza virus with other respiratory manifestations (principal); I10 Essential (primary) hypertension; E78.00 Pure hypercholesterolemia, unspecified